=== PATIENT | female | born 1975 | race Caucasian/White ===

== ENCOUNTER → 2017-01-29 09:04 | Outpatient (CLI) | payer BC ==
[2010-06-28 23:34] VITALS: BMI 29.3
[~2017-01-29 09:04] MED LIST: ALDACTONE100 MG PO; DELZICOL400 M1 PO; HYDROCODON-ACE1 EAC7 PO; MICROGESTIN FE1 EACH PO; OMEPRAZOLE20 M1 PO
[2017-03-24 06:16] VITALS: BMI 25.2
== END | disposition home or self-care (01) ==
LOC: D.US 01-28 09:00 → D.LAB 09:04 → D.US 10:00
DX: R10.9 Unspecified abdominal pain (principal)

== ENCOUNTER → 2017-02-21 09:02 | Outpatient (CLI) | payer BC ==
[2010-06-28 23:34] VITALS: BMI 29.3
[2017-02-21 09:26] LABS: BASOPHILS 0.1 % (0-2); EOSINOPHILS 1.3 % (0-7); HEMATOCRIT 39.9 % (36.0-48.0); HEMOGLOBIN 13.3 g/dL (12-16); IMMATURE GRANULOCYTES 0.1 % (0-5); LYMPHOCYTES 22.7 % (15-50); MCH 30.1 pg (26.0-34.0); MCHC 33.3 g/dL (31.0-37.0); MCV 90.3 fL (80.0-100.0); MEAN PLATELET VOLUME 9.1 fL (7.4-10.4); MONOCYTES 6.8 % (2-11); RBC 4.42 10x6/uL (4.00-5.40); RDW 12.7 % (11.5-14.5); WBC 7.8 10x3/uL (4.8-10.8)
[2017-02-21 09:31] LABS: PLATELET COUNT 224 10x3/uL (130-400)
[2017-02-21 09:46] LABS: ALBUMIN 3.4 g/dL (3.4-5.0); ALKALINE PHOSPHATASE 48 U/L (46-116); ALT (SGPT) 39 U/L (10-68); CALC OSMOLALITY 270 mosm/kg (275-300); CALCIUM 9.1 mg/dL (8.5-10.1); CARBON DIOXIDE 26.9 mmol/L (21.0-32.0); CHLORIDE - SERUM 99 mmol/L (98-107); CREATININE - SERUM 0.8 mg/dL (0.6-1.3); GLUCOSE 105 mg/dL (74-106); POTASSIUM - SERUM 3.8 mmol/L (3.5-5.1); PROTEIN - SERUM 7.6 g/dL (6.4-8.2); SODIUM 136 mmol/L (136-145); UREA NITROGEN 10 mg/dL (7-18); eGFR NON AFRICAN AMERICAN 85 mL/min (90-120)
[2017-02-21 11:18] LABS: ERYTHROCYTE SEDIMENTATION RATE 15 mm/hr (0-20)
[2017-03-24 06:16] VITALS: BMI 25.2
== END | disposition home or self-care (01) ==
LOC: D.LAB 08:00
PROVIDERS: Internal Medicine Gastroenterology
DX: K52.9 Noninfective gastroenteritis and colitis, unspecified (principal)

== ENCOUNTER → 2017-03-12 10:50 | Outpatient (CLI) | payer BC ==
[2010-06-28 23:34] VITALS: BMI 29.3
[2017-03-24 06:16] VITALS: BMI 25.2
== END | disposition home or self-care (01) ==
LOC: D.LAB 10:50 → D.NM 11:30
DX: K20.9 Esophagitis, unspecified (principal); K29.80 Duodenitis without bleeding; K25.3 Acute gastric ulcer without hemorrhage or perforation

== ENCOUNTER 2017-03-24 05:42 | Day surgery (SDC) | payer BC ==
[2017-03-21 08:56] LABS: HEMOGLOBIN 13.5 g/dL (12-16); MCH 30.3 pg (26.0-34.0); MCHC 33.8 g/dL (31.0-37.0); MCV 89.7 fL (80.0-100.0); MEAN PLATELET VOLUME 9.3 fL (7.4-10.4); RBC 4.46 10x6/uL (4.00-5.40); RDW 12.7 % (11.5-14.5); WBC 6.1 10x3/uL (4.8-10.8)
[~2017-03-24] VITALS: Ht 167.6 cm; Wt 70.8 kg
[~2017-03-24 05:42] MED LIST changes: -HYDROCODON-ACE1 EAC7 PO
[2017-03-24 06:16] VITALS: BP 103/67; Ht 167.6 cm; Wt 70.8 kg
[2017-03-24 06:45] LABS: HCG URINE NEGATIVE (NEGATIVE)
[2017-03-24] MEDS ORDERED: HYDROCODON-ACE1 EAC7 PO (09:14)
--- NOTE | 2017-03-24 09:28 | NUR ---
THE PATIENT COMPLAINED OF LEFT SHOULDER PAIN
== END 2017-03-24 11:30 | disposition home or self-care (01) ==
LOC: D.OPS 05:42 → D.PAN 08:00 → D.OPS 11:30
PROVIDERS: Anesthesiology; Surgery
DX: K82.8 Other specified diseases of gallbladder (principal); K51.90 Ulcerative colitis, unspecified, without complications; R10.11 Right upper quadrant pain; Z01.812 Encounter for preprocedural laboratory examination

== ENCOUNTER → 2018-03-02 18:39 | Outpatient (CLI) | payer BC ==
[2017-03-24 06:16] VITALS: BMI 25.2
[~2018-03-02 18:39] MED LIST changes: +HYDROCODON-ACE1 EAC7 PO
== END | disposition home or self-care (01) ==
LOC: D.MAMMO 09:15
DX: Z12.31 Encounter for screening mammogram for malignant neoplasm of breast (principal)

== ENCOUNTER → 2018-04-06 15:34 | Outpatient (CLI) | payer BC ==
[2017-03-24 06:16] VITALS: BMI 25.2
== END | disposition home or self-care (01) ==
LOC: D.MAMMO 13:30
DX: R92.8 Other abnormal and inconclusive findings on diagnostic imaging of breast (principal)

== ENCOUNTER 2018-10-19 08:00 | Outpatient (CLI) | payer BC ==
[2017-03-24 06:16] VITALS: BMI 25.2
== END 2018-10-19 23:59 | disposition home or self-care (01) ==
LOC: D.MAMMO 08:00
PROVIDERS: ATTEND Clinical Nurse Specialist Family Health
DX: N60.19 Diffuse cystic mastopathy of unspecified breast (principal)

== ENCOUNTER 2019-10-25 08:00 | Outpatient (CLI) | payer BC ==
[2017-03-24 06:16] VITALS: BMI 25.2
== END 2019-10-25 23:59 | disposition home or self-care (01) ==
LOC: D.MAMMO 08:00
PROVIDERS: ATTEND Clinical Nurse Specialist Family Health
DX: Z12.31 Encounter for screening mammogram for malignant neoplasm of breast (principal)